=== PATIENT | male | born 1975 | race Caucasian/White ===

== ENCOUNTER 2023-06-24 08:48 | Day surgery (SDC) | payer BC, SELFPAY ==
[2023-06-24 09:36] VITALS: BP 143/88; PULSE 75; RESP 18; TEMP 36.4; O2SAT 96; BMI 41.2
[2023-06-24] MEDS: sodium chloride 0.9% 1,000 ML 30 ML IV (09:43)
--- NOTE | 2023-06-24 10:40 | ANES.PREANE2 ---
Pre-Anesthetic Assessment Height/Weight: Height 1.83 m Weight 137.892 kg Temp Pulse Resp BP Pulse Ox O2 Del Method 97.5 F L 75 18 143/88 96 Room Air 06/24/23 09:36 06/24/23 09:36 06/24/23 09:36 06/24/23 09:36 06/24/23 09:36 06/24/23 09:36 Preop Diagnosis: Screening colonoscopy Operation Date: 06/24/23 10:00 Proposed Procedures p 46823 colon G0121 screen colon A risk K62.5,K64.4(Not Applicable) - Pedro Jules DO Familial anesthetic complications: NONE Was Beta Nirav taken within 24 hours: N/A Was Clonidine taken within 24 hours: N/A Last intake: Intake Last Liquid Date 06/23/23 Last Liquid Time 23:30 Last Solid Date 06/22/23 Last Solid Time 21:00 Social Tobacco .5 pack(s) per day 10 pack years Quit 15 year ago Exam alert, oriented x 3, clear to auscultation bilaterally and regular rate & rhythm Airway Submandibular: within normal limits Cervical ROM: within normal limits Mallampati: Class II Comments: Comments: Multiple crowns History/ROS No significant history except as noted Pulmonary Sleep Apnea Uses CPAP at night and for naps CV/HEM Hypertension None reported Hepatic None reported GI Gastroesophageal Reflux Disease Metabolic Pre diabetic Musc/skel Lower Back Pain Neuropsych Anxiety Anesthetic Plan ASA status: 2 Anesthesia: Anesthesia Evaluation, MAC and Local Only Medications/Allergies Home Medications Medication Instructions Recorded Confirmed Last Taken Type lisinopril 10 mg tablet 10 mg PO DAILY Htn #90 tabs 06/16/23 06/22/23 06/23/23 Rx Allergies Allergy/AdvReac Type Severity Reaction Status Date / Time No Known Allergies Allergy Unverified 06/08/23 14:22 Current Medications Generic Name Dose Route Start Last Admin Trade Name Freq PRN Reason Stop Dose Admin Sodium Chloride 1,000 mls @ 30 mls/hr 06/24/23 09:00 06/24/23 09:43 Sodium Chloride 0.9% IV 06/25/23 08:59 30 mls/hr .Q24H AAMIR Administration PFSH Anesthesia Medical History BMI 40.0-44.9, adult Anterior chest wall pain Rectal bleeding Hemorrhoidal skin tag HTN (hypertension) with goal to be determined Back pain Arthritis Shoulder pain Leg cramps Surgical History No pertinent past surgical history Family History Father Heart disease Mother Cancer Diabetes Lymphoma Social History Smoking and tobacco/nicotine status: former use of tobacco/nicotine Quit status (tobacco/nicotine): has quit using Alcohol intake: former Substance/Drug Use: former Data Anesthesia Cardiac Studies: No Data to Display
--- NOTE | 2023-06-24 11:53 | W.PM.OPSUD ---
Surgery/Procedure H&P Update DATE OF PROCEDURE: June 24, 2023 DATE H&P PERFORMED: 06/08/23 H&P UPDATE INFORMATION: I have reviewed H&P completed within last 30 days, I have examined patient prior to procedure and No changes to prior documentation PREOP DIAGNOSIS: Screening colonoscopy PLANNED PROCEDURE: Operation Date: 06/24/23 10:00 Proposed Procedures p 19621 colon G0121 screen colon A risk K62.5,K64.4(Not Applicable) - Pedro Jules DO
[2023-06-24 12:12] VITALS: BP 105/74; PULSE 71; RESP 14; TEMP 35.8; O2SAT 95
[2023-06-24 12:21] VITALS: BP 120/89; PULSE 68; RESP 16; O2SAT 96
--- NOTE | 2023-06-24 13:11 | ANE.PACU2 ---
Inpatient post-anesthesia follow up: Airway intact: Yes Vital signs: Temperature 96.4 F Pulse Rate 68 Respiratory Rate 16 Blood Pressure 120/89 Pulse Oximetry 96 Oxygen Delivery Me thod Room Air Oxygen Flow Rate Fraction of Inspir ed Oxygen Hydration adequate: Yes Nausea and vomiting: No Pain level: 2 Mental status: Baseline
== END 2023-06-24 12:47 | disposition home or self-care (01) ==
PROVIDERS: PCP Family Medicine Adult Medicine; Visit Provider Surgery
PROC: 0DJD8ZZ Inspection of Lower Intestinal Tract, Via Natural or Artificial Opening Endoscopic (ICD-10-PCS; CPT 45378; principal; 2023-06-24 10:00)
DX: Z12.11 Encounter for screening for malignant neoplasm of colon (principal); Z87.891 Personal history of nicotine dependence; G47.30 Sleep apnea, unspecified; I10 Essential (primary) hypertension; K21.9 Gastro-esophageal reflux disease without esophagitis; R73.03 Prediabetes; M19.90 Unspecified osteoarthritis, unspecified site
CPT/HCPCS: 45378; J2704; J7030

== ENCOUNTER 2023-12-28 20:59 | Emergency (ER) | payer BC, SELFPAY ==
[2023-12-28 21:04] VITALS: BP 183/105; PULSE 74; RESP 18; TEMP 36.9; O2SAT 97; BMI 42.0
[2023-12-28 21:22] VITALS: BP 159/102; RESP 18; O2SAT 97
--- NOTE | 2023-12-28 21:25 | XRR_ITS ---
PROCEDURE INFORMATION: Exam: XR Chest Exam date and time: 12/28/2023 9:32 PM Age: 48 years old Clinical indication: Pain; Chest pressure; Additional info: Chest pain, pain shooting down left shoulder and arm, slack jaw x 1 wk TECHNIQUE: Imaging protocol: Radiologic exam of the chest. Views: 1 view. COMPARISON: No relevant prior studies available. FINDINGS: Lungs: The lungs are adequately expanded. No focal consolidations or pulmonary edema. Pleural spaces: No pleural effusions or pneumothorax. Heart/Mediastinum: No cardiomegaly. Bones/joints: No acute fractures. XR/XR chest 1V portable [id number] IMPRESSION: No acute pulmonary disease.
--- NOTE | 2023-12-28 21:26 | ECG_ITS ---
[facility] Test Date: 2023-12-28 Pat Name: Young Neil Department: Room: Gender: Male General Expeditor: : 1975 Requested By: Zachery Farr Order Number: [id number] Ellison MD: Rudy Renteria M.D. Measurements Intervals [place] Rate: 81 P: 18 [place]: 116 QRS: 5 QRSD: 126 T: 18 QT: 346 QTc: 404 Interpretive Statements SINUS RHYTHM WITH SHORT [place] INTERVAL POSSIBLE RIGHT VENTRICULAR CONDUCTION DELAY [RSR (QR) IN V1/V2] No previous ECG available for comparison Electronically Signed On 12-29-2023 9:05:50 CDT by Rudy Renteria M.D. [id number] f
[2023-12-28 21:35] LABS: Basophils # 0.1 10^3/uL (0.0-0.1); Basophils % 0.9 %; Eosinophils # 0.2 10^3/uL (0.0-0.8); Eosinophils % 1.8 %; Hematocrit 43.2 % (37-53); Lymphocytes # 2.2 10^3/uL (0.8-4.8); Lymphocytes % 27.1 %; Mean Corpuscular HGB Conc 32.9 g/dL (30-55); Mean Corpuscular Hemoglobin 27.7 pg (27-33); Mean Corpuscular Volume 84.2 fl (82-101); Mean Platelet Volume 10.2 fL (7.4-10.4); Monocytes # 0.5 10^3/uL (0.2-0.9); Monocytes % 5.6 %; Neutrophils # 5.21 10^3/uL (1.8-7.7); Nucleated Red Blood Cells % 0 %; Platelet Count 184 10^3/cmm (157-399); Red Blood Count 5.13 10^6/uL (3.85-5.65); Red Cell Distribution Width 13.7 % (12.1-15.1); White Blood Count 8.15 10^3/uL (3.29-11.43)
[2023-12-28 21:48] VITALS: PULSE 74; RESP 18; O2SAT 98
--- NOTE | 2023-12-28 21:57 | ED_ITS ---
HPI - General Adult 2 General: Chief complaint: General Medical Stated complaint: Pt Left Arm\Jaw Feeling Weak\Dizzy Time Seen by Provider: 12/28/23 21:18 History of Present Illness: Patient is a well-appearing 48-year-old male who states he has had some aching and sharp pain around the left elbow and upper extremity for the last 1 week. Patient states that tonight he was at the dinner table about 30 to 45 minutes before arrival and began feeling some numbness to the tongue, jaw pain, and felt short of breath. He denies any chest pain or discomfort. No chest pressure. He has no symptoms at the moment and denies any current chest pain, shortness of breath, or paresthesias. He denies any known history of coronary artery disease. He does state he has a history of anxiety and thought that his anxiety may have been triggered tonight while he had symptoms at the dinner table. Onset (ago): minute(s) Associated symptoms: Reports dyspnea; Deny chest pain, headache(s), nausea, rash or vomiting Review of Systems 2 Const: Denies: fever(s) or chills Eyes: Denies: change in vision Card: Denies: chest pain Resp: Reports: dyspnea GI: Denies: abdominal pain, nausea or vomiting Skin/Breast: Denies: rash Neuro: Denies: headache(s) Psych: Reports: anxiety PFS ED 2 PFSH: Medical History (Updated 12/29/23 @ 00:45 by Zachery Farr MD) Screening for colon cancer BPH w urinary obs/LUTS BMI 40.0-44.9, adult Anterior chest wall pain Rectal bleeding Hemorrhoidal skin tag HTN (hypertension) with goal to be determined Back pain Arthritis Shoulder pain Leg cramps Surgical History No pertinent past surgical history Family History Father Heart disease Mother Cancer Diabetes Lymphoma Social History Smoking and tobacco/nicotine status: former use of tobacco/nicotine Quit status (tobacco/nicotine): has quit using Alcohol intake: former Substance/Drug Use: former Physical Exam 2 Const: COMMON NORMALS: no acute distress, alert and well nourished GENERAL APPEARANCE: cooperative, comfortable and well kempt; not in distress ORIENTATION/CONSCIOUSNESS: Yes awake HENMT: COMMON NORMALS: normocephalic, atraumatic and Normal external nose present HEAD & SCALP: normocephalic and atraumatic NOSE: Normal external nose present MOUTH: Normal oral and palatal mucosa present Eye: COMMON NORMALS: EOMs intact bilaterally and conjunctivae normal C ONJUNCTIVA: Yes conjunctivae normal Neck/C-Spine: GENERAL: No tracheal deviation Chest: COMMONS NORMALS: normal inspection of the chest Resp: COMMON NORMALS: normal respiratory effort, No retractions and No use of accessory muscles Cardio: COMMON NORMALS: regular rhythm and Peripheral pulses 2+ throughout RHYTHM: regular rhythm PERIPHERAL PULSES: Peripheral pulses 2+ throughout GI: COMMON NORMALS: Soft to palpation, non-tender and no masses PALPATION: Yes Soft to palpation Extremity: COMMON NORMALS: normal to inspection, full ROM and no pedal edema Neuro: COMMON NORMALS: no focal motor deficits SENSORIUM/ORIENTATION: Yes alert Psych: APPEARANCE: Yes well kempt Skin: COMMON NORMALS: no rashes or lesions noted GENERAL SKIN EXAM: no rashes or lesions noted Course 2 Vital Signs: Vital signs: Vital Signs Temperature 98.4 F 12/28/23 21:04 Pulse Rate 76 12/29/23 00:00 Respiratory Rate 16 12/29/23 00:00 Blood Pressure 139/95 12/29/23 00:00 Pulse Oximetry 94 12/29/23 00:00 Oxygen Delivery Me thod Room Air 12/29/23 00:00 [facility] - General Adult Medical Decision Making Patient is a 48-year-old male who presents to the ER for evaluation of left arm pain and some shortness of breath that has since resolved. EKG is sinus rhythm without any ischemic ST elevation or depressions. Chest x-ray is unremarkable. He is Wells low risk and PERC negative. Troponin and delta troponin are within normal limits. Labs are otherwise unremarkable per my interpretation. Patient is eager for discharge home and was provided reassurance with 2 normal troponins. I have recommended he follow-up with his PCP discuss outpatient stress testing. He was provided strict return precautions for any recurrence of chest pain, shortness of breath, or any other concerns. Lab Data I reviewed the patient's lab results. 12/28/23 21:29 12/28/23 21:29 Radiology Impressions Chest X-Ray 12/28/23 21:25 IMPRESSION: No acute pulmonary disease. Laboratory Results WBC 8.15 10^3/uL (3.29-11.43) 12/28/23 21: RBC 5.13 10^6/uL (3.85-5.65) 12/28/23 21: Hgb 14.20 g/dL (11.27-16.99) 12/28/23 21: Hct 43.2 % (37-53) 12/28/23 21: MCV 84.2 fl (82-101) 12/28/23 21: MCH 27.7 pg (27-33) 12/28/23 21: MCHC 32.9 g/dL (30-55) 12/28/23 21: RDW 13.7 % (12.1-15.1) 12/28/23 21: Plt Count 184 10^3/cmm (157-399) 12/28/23 21: MPV 10.2 fL (7.4-10.4) 12/28/23 21: Neut % (Auto) 64.0 % 12/28/23 21: Lymph % (Auto) 27.1 % 12/28/23 21: [place] % (Auto) 5.6 % 12/28/23: Eos % (Auto) 1.8 % 12/28/23 21: Baso % (Auto) 0.9 % 12/28/23: Neut # (Auto) 5.21 10^3/uL (1.8-7.7) 12/28/23: Lymph # (Auto) 2.2 10^3/uL (0.8-4.8) 12/28/23 21: [place] # (Auto) 0.5 10^3/uL (0.2-0.9) 12/28/23: Eos # (Auto) 0.2 10^3/uL (0.0-0.8) 12/28/23 21: Baso # (Auto) 0.1 10^3/uL (0.0-0.1) 12/28/23 21: Nucleated RBC % (auto) 0 % 12/28/23 21: Nucleated RBCs # 0.0 /100WBC 12/28/23 21:29 Sodium 140 mmol/L (136-145) 12/28/23 21:29 Potassium 3.8 mmol/L (3.5-5.1) 12/28/23 21:29 Chloride 105 mmol/L (98-107) 12/28/23 21: Carbon Dioxide 21 mmol/L (22-29) L 12/28/23 21:29 Anion Gap 17.8 (5-19) 12/28/23 21:29 BUN 14 mg/dL (6-20) 12/28/23 21:29 Creatinine 0.8 mg/dL (0.7-1.2) 12/28/23 21: GFR Calculation 104.1 mL/min (90-130) 12/28/23 21: Glucose 107 mg/dL (65-115) 12/28/23 21: Calculated Osmolality 291 mOsm/kg (285-295) 12/28/23: Calcium 8.9 mg/dL (8.5-10.5) 12/28/23 21:29 Total Bilirubin 0.3 mg/dL (0.15-1.2) 12/28/23 21:29 AST 20 U/L (0-40) 12/28/23 21: ALT 28 U/L (0-41) 12/28/23 21: Alkaline Phosphatase 98 U/L (40-130) 12/28/23 21:29 Troponin T Baseline 7 ng/L (0-15) 12/28/23 21:29 Troponin T 120 Minute 8.93 ng/L (0-15) 12/28/23 23:36 Delta Troponin T 1.93 ABS# (0-10) 12/28/23 23:36 Total Protein 6.9 g/dL (6.6-8.7) 12/28/23 21: Albumin 4.5 g/dL (3.5-5.2) 12/28/23 21: Globulin 2.4 g/dL (1.3-4.6) 12/28/23 21:29 All radiology interpretation(s) finalized by discharge EKG Data EKG 1: Interpretation: Sinus rhythm. Rate of 74 bpm. Normal axis. QTc of [address] elevation or depressions. Computer generated interpretation: Chest X-Ray 12/28/23 21:25 IMPRESSION: No acute pulmonary disease. Discharge Plan Discharge Patient Disposition: Home Clinical Impression: Acute dyspnea, Arm pain, left Condition: Stable Prescriptions: No Action tamsulosin 0.4 mg capsule 0.4 mg PO DAILY Qty: 90 1RF lisinopril 10 mg tablet 10 mg PO DAILY Qty: 90 1RF Discharge Orders: Discharge ED (Routine); Ordered 12/29/23 Ordered By: Zachery Farr Referrals: Rohith Vallejo MD [Primary Care Provider] - Patient Instructions: Opioid Safety, Pain Management, Chest Pain (DC) Activity Restrictions/Additional Instructions: Continue home medications as previously directed. Follow-up with your PCP for recheck in 3 to 5 days to discuss outpatient stress testing and further evaluation. Return to the ER for any new or worsening symptoms or any other concerns. Coding Level of Care Code ED [employer] Floor Layer for Jarrod Alves
[2023-12-28 22:06] LABS: Troponin(5th) Baseline 7 ng/L (0-15)
[2023-12-28 22:07] LABS: Alanine Aminotransferase 28 U/L (0-41); Albumin Level 4.5 g/dL (3.5-5.2); Alkaline Phosphatase 98 U/L (40-130); Blood Urea Nitrogen 14 mg/dL (6-20); Calcium 8.9 mg/dL (8.5-10.5); Carbon Dioxide 21 mmol/L (22-29); Chloride 105 mmol/L (98-107); Globulin 2.4 g/dL (1.3-4.6); Glomerular Filtration Rate 104.1 mL/min (90-130); Glucose 107 mg/dL (65-115); Osmolality Calculated 291 mOsm/kg (285-295); Sodium 140 mmol/L (136-145); Total Bilirubin 0.3 mg/dL (0.15-1.2); Total Protein 6.9 g/dL (6.6-8.7)
[2023-12-28 22:12] LABS: Anion Gap 17.8 (5-19); Aspartate Amino Transferase 20 U/L (0-40); Potassium 3.8 mmol/L (3.5-5.1)
[2023-12-28 22:48] VITALS: PULSE 76; RESP 16; O2SAT 98
--- NOTE | 2023-12-28 23:26 | ECG_ITS ---
[facility] Test Date: 2023-12-28 Pat Name: Young Neil Department: Room: Gender: Male Configuration Management Administrator: : 1975 Requested By: Zachery Farr Order Number: [id number] Ellison MD: Rudy Renteria M.D. Measurements Intervals [place] Rate: 74 P: 39 [place]: 157 QRS: -2 QRSD: 107 T: 17 QT: 345 QTc: 383 Interpretive Statements SINUS RHYTHM LOW QRS VOLTAGE IN PRECORDIAL LEADS [QRS DEFLECTION < 1.0 mV IN CHEST LEADS] INCOMPLETE RIGHT BUNDLE BRANCH BLOCK [90+ ms QRS DURATION, TERMINAL R IN V1/V2, 40+ ms S IN I/aVL/V4/V5/V6] Compared to ECG 12/28/2023 21:14:22 Low QRS voltage now present Incomplete right bundle-branch block now present Short MS interval no longer present Electronically Signed On 12-29-2023 9:07:02 CDT by Rudy Renteria M.D. [email or web address].[email or web address]/[email or web address]/[id number] f
[2023-12-28 23:59] VITALS: BP 139/95; PULSE 77; RESP 16; O2SAT 94
[2023-12-29] VITALS: BP 139/95; PULSE 76; RESP 16; O2SAT 94
[2023-12-29 00:14] LABS: Troponin 5 2HR 8.93 ng/L (0-15); Troponin 5 2HR Delta 1.93 ABS# (0-10)
[2023-12-29 00:52] VITALS: BP 139/95; PULSE 76; RESP 16; O2SAT 97
[2023-12-29 00:53] VITALS: BP 139/95; PULSE 76; RESP 16; TEMP 36.9; O2SAT 97
== END 2023-12-29 00:54 | disposition home or self-care (01) ==
PROVIDERS: Emergency Provider Student in an Organized Health Care Education/Training Program; PCP Family Medicine Adult Medicine
DX: R06.00 Dyspnea, unspecified (principal); M79.602 Pain in left arm; Z87.891 Personal history of nicotine dependence; I10 Essential (primary) hypertension
CPT/HCPCS: 36415; 71045; 80053; 84484; 85025; 93005; 99285

== ENCOUNTER → 2024-01-03 09:09 | Outpatient (BNVA) | payer BC, SELFPAY | PROVIDERS: PCP Family Medicine Adult Medicine; Visit Provider Family Medicine Adult Medicine | DX: I10 Essential (primary) hypertension (principal); Z68.41 Body mass index [BMI] 40.0-44.9, adult; R53.83 Other fatigue; F41.1 Generalized anxiety disorder; F41.0 Panic disorder [episodic paroxysmal anxiety] | CPT/HCPCS: 80053; 84443 ==

== ENCOUNTER 2024-03-30 00:08 | Emergency (ER) | payer BC, SELFPAY ==
[2024-03-30 00:14] VITALS: BP 157/103; PULSE 78; RESP 16; TEMP 36.7; O2SAT 96; BMI 42.8
--- NOTE | 2024-03-30 00:53 | ED_ITS ---
HPI - GI Bleed General: Chief complaint: GI Bleed Stated complaint: Blood in BM Time Seen by Provider: 03/30/24 00:43 History of Present Illness: 48-year-old who presents emergency room with rectal bleeding. He has had some bright red blood and he had a clot. He had a colonoscopy in the last few months that was completely normal. He had spoken with his GI doctor and they thought maybe he was wiping too hard and was causing bleeding. He now has a bump down there as well. This is likely hemorrhoid and he has been treating for hemorrhoid. was concerned because he had passed a blood clot. Related Data Previous Rx's Medication Instructions Recorded hydroxyzine HCl 25 mg tablet 25 mg PO Q8H PRN anxiety attacks 01/03/24 #30 tabs buspirone 10 mg tablet 10 mg PO BID mental health #180 01/26/24 tabs tamsulosin 0.4 mg capsule 0.4 mg PO DAILY prostate #90 caps 02/20/24 azelastine 137 mcg (0.1 %) nasal 2 spray intranasal DAILY 03/22/24 spray congestion #90 mL lisinopril 10 mg tablet 10 mg PO DAILY Htn #90 tabs 03/26/24 Allergies Allergy/AdvReac Type Severity Reaction Status Date / Time No Known Allergies Allergy Unverified 01/03/24 08:33 Review of Systems Narrative: Constitutional symptoms: Negative except as documented in HPI. Skin symptoms: Negative except as documented in HPI. Eye symptoms: Negative except as documented in HPI. ENMT symptoms: Negative except as documented in HPI. Respiratory symptoms: Negative except as documented in HPI. Cardiovascular symptoms: Negative except as documented in HPI. Gastrointestinal symptoms: Negative except as documented in HPI. Genitourinary symptoms: Negative except as documented in HPI. Musculoskeletal symptoms: Negative except as documented in HPI. Neurologic symptoms: Negative except as documented in HPI. Psychiatric symptoms: Negative except as documented in HPI. Endocrine symptoms: Negative except as documented in HPI. [facility] ED PFS: Medical History (Updated 03/30/24 @ 00:59 by Naila Long MD) Nasal sinus congestion Generalized anxiety disorder with panic attacks Fatigue MAHAMED on CPAP Anterior chest wall pain Hemorrhoidal skin tag Screening for colon cancer BPH w urinary obs/LUTS BMI 40.0-44.9, adult HTN (hypertension) with goal to be determined Back pain Arthritis Shoulder pain Leg cramps Surgical History No pertinent past surgical history Family History Father Heart disease Mother Cancer Diabetes Lymphoma Social History Smoking and tobacco/nicotine status: former use of tobacco/nicotine Quit status (tobacco/nicotine): has quit using Alcohol intake: former Substance/Drug Use: former Physical Exam Narrative: EXAM NARRATIVE: General: Alert, no acute distress. Skin: warm and dry Head: Normocephalic Neck: Trachea midline Eye: Extraocular movements are intact. Ears, nose, mouth and throat: Oral mucosa moist Respiratory: Respirations are non-labored Musculoskeletal: Normal ROM Neurological: Alert and oriented, No focal neurological deficit observed. Psychiatric: Cooperative, appropriate mood & affect. . Course Vital Signs: Vital signs: Vital Signs Temperature 98.0 F 03/30/24 00:14 Pulse Rate 78 03/30/24 00:14 Respiratory Rate 16 03/30/24 00:14 Blood Pressure 157/103 03/30/24 00:14 Pulse Oximetry 96 03/30/24 00:14 MDM - GI Bleed Medical Decision Making Assessment and plan: Rectal bleeding This is most likely a hemorrhoid. I discussed that we can check lab if patient want to to see if he is anemic. He opted out. He is comfortable with going home. If bleeding continues he will follow with his primary doctor. - Discharged home - Discussed plan with patient. Answered any questions. - Evaluation and treatment of this problem were appropriate in the emergency s etting. No radiology studies performed this visit Discharge Plan Discharge Patient Disposition: Home Clinical Impression: Hematochezia Condition: Stable Prescriptions: No Action hydroxyzine HCl 25 mg tablet 25 mg PO Q8H PRN (Reason: anxiety attacks) Qty: 30 1RF buspirone 10 mg tablet 10 mg PO BID Qty: 180 1RF tamsulosin 0.4 mg capsule 0.4 mg PO DAILY Qty: 90 1RF azelastine 137 mcg (0.1 %) spray,non-aerosol 2 spray intranasal DAILY Qty: 90 0RF Rx Instructions: administer into each nostril lisinopril 10 mg tablet 10 mg PO DAILY Qty: 90 1RF Discharge Orders: Discharge ED (Routine); Ordered 03/30/24 Ordered By: Naila Long Referrals: Rohith Vallejo MD [Primary Care Provider] - Discharge Diet: Usual diet Discharge Activity: Increase activity as tolerated Patient Instructions: Rectal Bleeding (ED), Opioid Safety, Pain Management Activity Restrictions/Additional Instructions: Thank you for choosing [facility] for your healthcare needs today. Please realize this is an emergency room and that we are providing you with a medical screening exam and this may not be complete and all inclusive of all the testing and or work up that you may need to determine your ailment or severity of your illness. You have been screened and evaluated and felt safe for discharge. Health conditions do change or evolve sometimes and as such it is important that you follow up with your Primary Doctor to be re checked, 3-5 days is a general good time frame for follow up. You are always welcome to return to the ED for re assessment if your symptoms are worsening or you have new concerns Coding Level of Care Code ED Business Division Chair for Jarrod Alves
[2024-03-30 01:06] VITALS: PULSE 88; RESP 16; O2SAT 99
== END 2024-03-30 01:02 | disposition home or self-care (01) ==
PROVIDERS: Emergency Provider Emergency Medicine; PCP Family Medicine Adult Medicine
DX: K92.1 Melena (principal); Z87.891 Personal history of nicotine dependence; I10 Essential (primary) hypertension
CPT/HCPCS: 99281

== ENCOUNTER 2024-04-12 18:48 | Emergency (ER) | payer BC, SELFPAY ==
[2024-04-12 18:56] VITALS: BP 164/116; PULSE 97; RESP 18; TEMP 36.7; O2SAT 98; BMI 42.8
[2024-04-12 18:58] VITALS: BP 136/105; BP 155/100; PULSE 80; PULSE 83; RESP 18; O2SAT 90; O2SAT 92
[2024-04-12 20:34] LABS: Anion Gap 15.8 (5-19); Blood Urea Nitrogen 14 mg/dL (6-20); Carbon Dioxide 24 mmol/L (22-29); Chloride 104 mmol/L (98-107); Glomerular Filtration Rate 90.8 mL/min (90-130); Glucose 121 mg/dL (65-115); Osmolality Calculated 292 mOsm/kg (285-295); Potassium 3.8 mmol/L (3.5-5.1); Sodium 140 mmol/L (136-145)
[2024-04-12 20:37] LABS: Basophils # 0.1 10^3/uL (0.0-0.1); Basophils % 0.6 %; Eosinophils # 0.2 10^3/uL (0.0-0.8); Eosinophils % 1.7 %; Hematocrit 45.7 % (37-53); Lymphocytes # 2.4 10^3/uL (0.8-4.8); Lymphocytes % 25.1 %; Mean Corpuscular HGB Conc 32.6 g/dL (30-55); Mean Corpuscular Hemoglobin 26.8 pg (27-33); Mean Corpuscular Volume 82.2 fl (82-101); Mean Platelet Volume 10.1 fL (7.4-10.4); Monocytes # 0.6 10^3/uL (0.2-0.9); Monocytes % 6.4 %; Neutrophils # 6.25 10^3/uL (1.8-7.7); Neutrophils % 65.7 %; Nucleated Red Blood Cells % 0 %; Platelet Count 246 10^3/cmm (157-399); Red Blood Count 5.56 10^6/uL (3.85-5.65); Red Cell Distribution Width 13.5 % (12.1-15.1); White Blood Count 9.52 10^3/uL (3.29-11.43)
--- NOTE | 2024-04-12 20:37 | W.ED.NEUROSD ---
HPI - Neuro Symptoms/Deficit General: Chief Complaint: Neuro Symptoms/Deficit Stated Complaint: lt side face tingling (1wk) Time Seen by Provider: 04/12/24 20:27 History of Present Illness: 48-year-old man who presents emergency room with tingling over the left side his face. It has been coming and going but has gotten a little worse over the last 2 days. Has been present for over a week now. This involves his eyebrow his eyelid and his right cheek down to the edge of his mouth. We discussed that this pattern of symptoms is only explainable by peripheral nerve irritation. This may be an early or mild Lieberman's palsy. Related Data Previous Rx's Medication Instructions Recorded hydroxyzine HCl 25 mg tablet 25 mg PO Q8H PRN anxiety attacks 01/03/24 #30 tabs tamsulosin 0.4 mg capsule 0.4 mg PO DAILY prostate #90 caps 02/20/24 azelastine 137 mcg (0.1 %) nasal 2 spray intranasal DAILY 03/22/24 spray congestion #90 mL lisinopril 10 mg tablet 10 mg PO DAILY Htn #90 tabs 03/26/24 hydrocortisone 2.5 % topical cream 1 applic MT Q8H PRN hemorrhoids 3 03/30/24 with perineal applicator weeks #30 grams (Anusol-HC) prednisone 20 mg tablet 60 mg (3 x 20 mg) PO DAILY #20 tabs 04/12/24 valacyclovir 1 gram tablet 1,000 mg PO BID 10 days #20 tabs 04/12/24 (Valtrex) Allergies Allergy/AdvReac Type Severity Reaction Status Date / Time No Known Allergies Allergy Verified 04/12/24 18:58 Review of Systems Narrative: Constitutional symptoms: Negative except as documented in HPI. Skin symptoms: Negative except as documented in HPI. Eye symptoms: Negative except as documented in HPI. ENMT symptoms: Negative except as documented in HPI. Respiratory symptoms: Negative except as documented in HPI. Cardiovascular symptoms: Negative except as documented in HPI. Gastrointestinal symptoms: Negative except as documented in HPI. Genitourinary symptoms: Negative except as documented in HPI. Musculoskeletal symptoms: Negative except as documented in HPI. Neurologic symptoms: Negative except as documented in HPI. Psychiatric symptoms: Negative except as documented in HPI. Endocrine symptoms: Negative except as documented in HPI. PFSH ED PFSH: Medical History Nasal sinus congestion Generalized anxiety disorder with panic attacks Fatigue MAHAMED on CPAP Anterior chest wall pain Hemorrhoidal skin tag Screening for colon cancer BPH w urinary obs/LUTS BMI 40.0-44.9, adult HTN (hypertension) with goal to be determined Back pain Arthritis Shoulder pain Leg cramps Surgical History No pertinent past surgical history Family History Father Heart disease Mother Cancer Diabetes Lymphoma Social History Smoking and tobacco/nicotine status: former use of tobacco/nicotine Quit status (tobacco/nicotine): has quit using Alcohol intake: former Substance/Drug Use: former Physical Exam Narrative: EXAM NARRATIVE: General: Alert, no acute distress. Skin: Warm, dry. Head: Normocephalic, atraumatic. Neck: Supple, trachea midline. Eye: Extraocular movements are intact. Ears, nose, mouth and throat: mucosa moist. Cardiovascular: Regular, Normal peripheral perfusion. Respiratory: Lungs are clear to auscultation, respirations are non-labored, breath sounds are equal, Symmetrical chest wall expansion. Gastrointestinal: Soft, Nontender, Non distended Musculoskeletal: Normal ROM, no deformity. Neurological: Alert and oriented, No focal neurological deficit observed. Complains of some tingling and numbness over the left side of his face from forehead down to his chin. No motor deficits. No slurred speech. Psychiatric: Cooperative, appropriate mood & affect. Course Vital Signs: Vital signs: Vital Signs Temperature 98.1 F 04/12/24 18:56 Pulse Rate 97 04/12/24 18:56 Respiratory Rate 18 04/12/24 18:56 Blood Pressure 164/116 04/12/24 18:56 Pulse Oximetry 98 04/12/24 18:56 Oxygen Delivery Me thod Room Air 04/12/24 18:56 MDM - Neuro Symptoms/Deficit Medical Decision Making Assessment and plan: Facial paresthesia Possible mild Lieberman's palsy ?IM Decadron in the emergency room. - Discharged home - Discussed plan with patient. Answered any questions. - Evaluation and treatment of this problem were appropriate in the emergency setting. Lab Data 04/12/24 20:04 04/12/24 20:04 Laboratory Results WBC 9.52 10^3/uL (3.29-11.43) 04/12/24 20:04 RBC 5.56 10^6/uL (3.85-5.65) 04/12/24 20:04 Hgb 14.90 g/dL (11.27-16.99) 04/12/24 20:04 Hct 45.7 % (37-53) 04/12/24 20:04 MCV 82.2 fl (82-101) 04/12/24 20:04 MCH 26.8 pg (27-33) L 04/12/24 20: MCHC 32.6 g/dL (30-55) 04/12/24 20:04 RDW 13.5 % (12.1-15.1) 04/12/24 20:04 Plt Count 246 10^3/cmm (157-399) 04/12/24 20:04 MPV 10.1 fL (7.4-10.4) 04/12/24 20:04 Neut % (Auto) 65.7 % 04/12/24 20:04 Lymph % (Auto) 25.1 % 04/12/24 20:04 [place] % (Auto) 6.4 % 04/12/24 20:04 Eos % (Auto) 1.7 % 04/12/24 20:04 Baso % (Auto) 0.6 % 04/12/24 20:04 Neut # (Auto) 6.25 10^3/uL (1.8-7.7) 04/12/24 20:04 Lymph # (Auto) 2.4 10^3/uL (0.8-4.8) 04/12/24 20:04 [place] # (Auto) 0.6 10^3/uL (0.2-0.9) 04/12/24 20:04 Eos # (Auto) 0.2 10^3/uL (0.0-0.8) 04/12/24 20:04 Baso # (Auto) 0.1 10^3/uL (0.0-0.1) 04/12/24 20:04 Nucleated RBC % (auto) 0 % 04/12/24 20:04 Nucleated RBCs # 0.0 /100WBC 04/12/24 20:04 Sodium 140 mmol/L (136-145) 04/12/24 20:04 Potassium 3.8 mmol/L (3.5-5.1) 04/12/24 20:04 Chloride 104 mmol/L (98-107) 04/12/24 20:04 Carbon Dioxide 24 mmol/L (22-29) 04/12/24 20:04 Anion Gap 15.8 (5-19) 04/12/24 20:04 BUN 14 mg/dL (6-20) 04/12/24 20:04 Creatinine 0.9 mg/dL (0.7-1.2) 04/12/24 20:04 GFR Calculation 90.8 mL/min (90-130) 04/12/24 20:04 Glucose 121 mg/dL (65-115) H 04/12/24 20:04 Calculated Osmolality 292 mOsm/kg (285-295) 04/12/24 20:04 Calcium 9.0 mg/dL (8.5-10.5) 04/12/24 20:04 No radiology studies performed this visit Discharge Plan Discharge Patient Disposition: Home Clinical Impression: Facial paresthesia Condition: Stable Prescriptions: New valacyclovir [Valtrex] 1 gram tablet 1,000 mg PO BID 10 Days Qty: 20 0RF prednisone 20 mg tablet 60 mg PO DAILY Qty: 20 0RF Rx Instructions: 3 tabs (60 mg) x 3 days. 2 tabs (40 mg) x 3 days. 1 tab (20 mg) x 3 days. 1/2 tab (10 mg) x 4 days No Action hydroxyzine HCl 25 mg tablet 25 mg PO Q8H PRN (Reason: anxiety attacks) Qty: 30 1RF hydrocortisone [Anusol-HC] 2.5 % cream with perineal applicator 1 applic MT Q8H PRN (Reason: hemorrhoids) 21 Days Qty: 30 0RF tamsulosin 0.4 mg capsule 0.4 mg PO DAILY Qty: 90 1RF azelastine 137 mcg (0.1 %) spray,non-aerosol 2 spray intranasal DAILY Qty: 90 0RF Rx Instructions: administer into each nostril lisinopril 10 mg tablet 10 mg PO DAILY Qty: 90 1RF Discharge Orders: Discharge ED (Routine); Ordered 04/12/24 Ordered By: Naila Long Referrals: Rohith Vallejo MD [Primary Care Provider] - Discharge Diet: As Directed Discharge Activity: Increase activity as tolerated Patient Instructions: Lieberman Palsy (ED), Paresthesia (ED), Opioid Safety, Pain Management Activity Restrictions/Additional Instructions: Thank you for choosing [facility] for your healthcare needs today. Please realize this is an emergency room and that we are providing you with a medical screening exam and this may not be complete and all inclusive of all the testing and or work up that you may need to determine your ailment or severity of your illness. You have been screened and evaluated and felt safe for discharge. Health conditions do change or evolve sometimes and as such it is important that you follow up with your Primary Doctor to be re checked, 3-5 days is a general good time frame for follow up. You are always welcome to return to the ED for re assessment if your symptoms are worsening or you have new concerns Coding Level of Care Code ED Community Support Professional for Jarrod Alves
[2024-04-12 20:56] VITALS: BP 136/105; O2SAT 91
[2024-04-12 21:00] VITALS: BP 136/105; O2SAT 91
[2024-04-12] MEDS: dexamethasone 10 mg/mL INJ IM (21:07)
[2024-04-12 21:17] VITALS: BP 150/100; PULSE 90; RESP 16; O2SAT 92
== END 2024-04-12 21:24 | disposition home or self-care (01) ==
PROVIDERS: Emergency Medicine; Emergency Provider Emergency Medicine; PCP Family Medicine Adult Medicine
DX: R20.2 Paresthesia of skin (principal); Z87.891 Personal history of nicotine dependence; I10 Essential (primary) hypertension
CPT/HCPCS: 36415; 80048; 85025; 96372; 99284; J1100